=== PATIENT | female | born 1965 | race Caucasian/White ===

== ENCOUNTER 2018-07-10 06:33 | Day surgery (SDC) | payer OTHER ==
[~2018-07-10 06:33] MED LIST: BUPROPION XL300 MG PO; CLONAZEPAM2 MG; IBERSARTAN PO; PROAIR HFA8.5 GM IH; PROZAC40 MG PO; SINGULAIR10 MG PO; SYMBIC PO; [UNRECOGNIZED DRUG - OTHER] PO
== END 2018-07-10 13:35 | disposition home or self-care (01) ==
LOC: CIR.AMB 06:33
DX: M75.41 Impingement syndrome of right shoulder (principal); M19.011 Primary osteoarthritis, right shoulder

== ENCOUNTER 2025-06-21 07:00 | Inpatient (IN) | payer OTHER ==
[2025-06-11 09:27] LABS: URINE APPEARANCE Clear; URINE BILIRRUBIN Negative (NEGATIVE); URINE BLOOD Negative; URINE COLOR Yellow; URINE GLUCOSE Negative (NEGATIVE); URINE KETONE Negative (NEGATIVE); URINE LEUKOCYTE Trace; URINE NITRATE Negative; URINE PROTEIN Negative (NEGATIVE); URINE UROBILINOGEN 0.2 E.U./dl
[2025-06-11 09:28] LABS: URINE BACTERIA 399.5 uL (0.0-1933); URINE EPITHELIAL CELLS 12.4 uL (0.0-38.8); URINE RBC 3.5 uL (0.0-20.8); URINE WBC 10.4 uL (0.0-23.2)
[2025-06-11 09:31] LABS: URINE CAST 0.00 uL (0.0-1.40)
[2025-06-11 09:37] LABS: BASO % 1.2 % (0.1-1.2); EOS # 0.20 (0.04-0.54); EOS % 3.4 % (0.7-7.0); LYMPH # 1.60 (1.18-3.74); LYMPH % 27.3 % (19.3-53.1); MEAN PLATELET VOLUME 9.60 fl (9.4-12.4); MONO # 0.37 (0.24-0.82); MONO % 6.3 % (4.7-12.5); NEUT # 3.61 (1.56-6.13); NEUT % 61.6 % (34.0-71.1); RED CELL DISTRIBUTION WIDTH 13.9 % (11.6-14.4)
[2025-06-11 09:59] VITALS: BP 140/82
[2025-06-11 10:09] LABS: INR 0.99
[2025-06-11 10:16] LABS: ALT/SGPT 31.0 U/L (12-78); AST/SGOT 20.0 U/L (15-37); BILIRUBIN TOTAL 0.57 mg/dL (0.3-1.2); BUN CREA RATIO 18.0 (7.0-25.0); CREATININE SERUM 0.76 mg/dL (0.55-1.02); GFR 78.44; GLOBULINA 3.7 G/DL (2.4-3.5); GLUCOSE FASTING 95.0 mg/dL (65-100); OSMOLALITY SERUM 285.0 MOSM/KG (275-295)
[~2025-06-21] VITALS: Ht 170.2 cm; Wt 114.3 kg
[2025-06-21] MEDS ORDERED: DEXTROSE 50 % IN WATER 0.5 G/ML DISP.SYRIN IV PRN (10:30)
[2025-06-21] MEDS ORDERED: DEXAMETHASONE SODIUM PHOSPHATE 4 MG/ML VIAL IV ONE (12:00)
[2025-06-21] MEDS ORDERED: CEFAZOLIN SODIUM 1,000 MG VIAL IV ONE (12:00)
[2025-06-21] MEDS ORDERED: MORPHINE SULFATE 4 MG/ML VIAL IV ONE (14:10)
[2025-06-21] MEDS ORDERED: CYCLOBENZAPRINE HCL 5 MG TABLET PO SCH (17:00)
[2025-06-21] MEDS ORDERED: DIPHENHYDRAMINE HCL 75 MG,LIDOCAINE HCL 30 ML,MAG HYDROX/ALUMINUM HYD/SIMETH 30 ML PO SCH (17:00)
[2025-06-21] MEDS ORDERED: TRAMADOL HCL 50 MG TABLET PO SCH (17:00)
[2025-06-21] MEDS ORDERED: ACETAMINOPHEN 500 MG GEL..CAP PO SCH (17:00)
[2025-06-22 00:26] VITALS: BP 103/69; O2SAT 95
[2025-06-22 08:00] VITALS: BP 95/56; O2SAT 99
[2025-06-22] MEDS ORDERED: CALCITRIOL 0.5 MCG CAPSULE PO SCH (09:00)
== END 2025-06-22 13:49 | disposition home or self-care (01) | DRG 627 ==
LOC: CIR.AMB 07:00 → SURH 15:16 → O/R 15:16 → SURH 15:24
PROVIDERS: ADMIT Surgery; ATTEND Surgery
PROC: 0GBM0ZZ Excision of Left Superior Parathyroid Gland, Open Approach (ICD-10-PCS; principal; 2025-06-21 07:00)
DX: D35.1 Benign neoplasm of parathyroid gland (principal); E21.0 Primary hyperparathyroidism